=== PATIENT | female | born 1985 | race Two or more races ===

== ENCOUNTER 2017-09-16 22:49 | Emergency (ER) | payer SELFPAY ==
[2017-09-16] MEDS: HYDROcodone/APAP 5/325MG 1 TAB TABLET PO (23:29)
[2017-09-17] MEDS: KETOROLAC 30 MG/ML INJ. IV (00:53)
[2017-09-17] MEDS: MORPHINE SULFATE 10 MG/ML VIAL. IV (00:53)
== END 2017-09-17 00:58 | disposition home or self-care (01) ==
LOC: ER 09-17 00:58
DX: S42.022A Displaced fracture of shaft of left clavicle, initial encounter for closed fracture (principal); W18.39XA Other fall on same level, initial encounter; Y93.72 Activity, wrestling; Y99.8 Other external cause status; Y92.89 Other specified places as the place of occurrence of the external cause
CPT/HCPCS: 71046; 73000; 96374; 96375; 99284-25; J1885; J2270